=== PATIENT | male | born 1980 | race Caucasian/White ===

== ENCOUNTER → 2021-04-15 | Outpatient (REF) ==
--- NOTE | 2021-04-15 15:02 | REP ---
INDICATION: SOB/PAIN. COMPARISON: None. TECHNIQUE: PA and lateral views FINDINGS: The superior mediastinal structures are midline. The cardiac silhouette is unremarkable in size, shape, and position. The diaphragmatic surfaces of the lungs are regular, and the costophrenic angles are clear. The pulmonary todd are clear. The imaged osseous structures are intact. IMPRESSION: There is no acute cardiopulmonary disease. <Electronically signed by Myles Campbell > 04/15/21 [id number]
--- NOTE | 2021-04-15 15:03 | REP ---
INDICATION: SOB/PAIN. COMPARISON: None. TECHNIQUE: Four views each hand FINDINGS: Bilateral: The joint spaces are symmetric and relatively well maintained. There is no evidence of acute fracture or destructive osseous lesion. IMPRESSION: No acute osseous abnormality bilateral <Electronically signed by Myles Campbell > 04/15/21 [id number]
== END ==
LOC: M PLAIMG 13:03
PROVIDERS: ATTEND Internal Medicine
DX: R06.02 Shortness of breath (principal)